=== PATIENT | male | born 1990 | race Caucasian/White ===

== ENCOUNTER 2017-11-21 05:45 | Emergency (ER) | payer OTHER ==
[2017-11-21] MEDS ORDERED: Ketorolac 30 MG/ML SDV IVPUSH ONE (06:25)
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
[2017-11-21 08:00] LABS: CHLORIDE,CL 103 mmol/L (98-107); SODIUM,NA 138 mmol/L (136-148)
--- NOTE | 2017-11-21 12:58 | CT ---
EXAM DATE: 11/21/17 PATIENT'S AGE: 27 Patient: NATALIO MAURICIO Facility: [place], [place] Site . Site : 1990 Study: CT Spine Cervical [id number]/22/2018 6:24:37 AM Ordering Physician: Doctor Cary Final Report: HISTORY: Trauma. TECHNIQUE: Noncontrast CT cervical spine. COMPARISON: No prior. FINDINGS: There is no acute cervical fracture. Cervical vertebral body height and intervertebral disc height are maintained. Straightening of normal cervical lordosis. No abnormal prevertebral soft tissue swelling. At C5-C6, there is a minimal disc-osteophyte complex with slight ventral thecal sac effacement but without significant canal stenosis. The neural foramina are patent at that level. At other levels, the central canal and neural foramina are patent. IMPRESSION: 1. No acute cervical fracture. 2. Straightening of the normal cervical lordosis. 3. Minor degenerative disc disease at C5-C6. Dictated by Bert Bray MD @ 11/21/2017 6:47:36 AM Please note that all CT scans at this facility use dose modulation, iterative reconstruction, and/or weight-based dosing when appropriate to reduce radiation dose to as low as reasonably achievable. Dictated by: Bert Bray MD @ 11/21/2017 06:47:40 (Electronic Signature) Report Signed by Proxy. [facility]luc[facility]
--- NOTE | 2017-11-21 13:00 | CT ---
EXAM DATE: 11/21/17 PATIENT'S AGE: 27 Patient: NATALIO MAURICIO Facility: [place], [place] Site . Site : 1990 Study: CT Head [id number]/22/2018 6:25:31 AM Ordering Physician: Doctor Cary Final Report: HISTORY: Trauma. TECHNIQUE: Noncontrast head CT. COMPARISON: No prior. FINDINGS: There is no acute intracranial hemorrhage or acute ischemic infarct. No mass effect or midline shift. No hydrocephalus. No acute loss of cameron-white differentiation. No extra-axial collection or hematoma. Mastoid air cells are clear. Paranasal sinuses are clear. The calvarium is intact. IMPRESSION: No acute intracranial injury or disease. Dictated by Bert Bray MD @ 11/21/2017 6:40:32 AM Please note that all CT scans at this facility use dose modulation, iterative reconstruction, and/or weight-based dosing when appropriate to reduce radiation dose to as low as reasonably achievable. Dictated by: Bert Bray MD @ 11/21/2017 06:40:39 (Electronic Signature) Report Signed by Proxy. [facility]
--- NOTE | 2017-11-21 13:01 | CT ---
EXAM DATE: 11/21/17 PATIENT'S AGE: 27 Patient: NATALIO MAURICIO Facility: [place], [place] Site . Site : 1990 Study: CT Facial [id number]/22/2018 6:26:06 AM Ordering Physician: Doctor Cary Final Report: HISTORY: Trauma. TECHNIQUE: Noncontrast CT of the facial bones. COMPARISON: No prior. FINDINGS: There is no orbital fracture. No retrobulbar hematoma or postseptal soft tissue swelling. No maxillary or mandibular fracture. The zygomatic arches are intact. The paranasal sinuses are clear. No fluid collection or space-occupying hematoma. IMPRESSION: No acute facial bone fracture. Dictated by Bert Bray MD @ 11/21/2017 6:44:12 AM Please note that all CT scans at this facility use dose modulation, iterative reconstruction, and/or weight-based dosing when appropriate to reduce radiation dose to as low as reasonably achievable. Dictated by: Bert Bray MD @ 11/21/2017 06:44:20 (Electronic Signature) Report Signed by Proxy. [facility]
--- NOTE | 2017-11-21 13:02 | CR ---
EXAM DATE: 11/21/17 PATIENT'S AGE: 27 Patient: NATALIO MAURICIO Facility: [place], [place] Site . Site : 1990 Study: XRay Chest [id number]/22/2018 6:30:51 AM Ordering Physician: Doctor Cary Final Report: HISTORY: Trauma. TECHNIQUE: One view of the chest. COMPARISON: No prior. FINDINGS: Cardiac size and pulmonary vasculature are within normal limits. There is no lung infiltrate or pulmonary edema. No pneumothorax or pleural effusion. No acute bony abnormality. IMPRESSION: No acute disease. Dictated by Bert Bray MD @ 11/21/2017 6:50:04 AM Dictated by: Bert Bray MD @ 11/21/2017 06:50:28 (Electronic Signature) Report Signed by Proxy. [facility]
== END 2017-11-21 08:15 | disposition home or self-care (01) ==
LOC: MW.ED 05:45
DX: Z77.098 Contact with and (suspected) exposure to other hazardous, chiefly nonmedicinal, chemicals (principal); T07.XXXA Unspecified multiple injuries, initial encounter; M54.2 Cervicalgia; M79.601 Pain in right arm; R07.89 Other chest pain; M54.9 Dorsalgia, unspecified; W37.8XXA Explosion and rupture of other pressurized tire, pipe or hose, initial encounter
CPT/HCPCS: 70450; 71045; 72125; 80053; 85025; 96374; 99284; J1885; 70486-26; 99283